=== PATIENT | female | born 2000 | race Caucasian/White ===

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

== ENCOUNTER → 2022-06-13 | Outpatient (CLI) | payer OTHER ==
--- NOTE | 2022-06-13 09:11 | Diagnostic Imaging Report ---
PROCEDURE: US Gallbladder. TECHNIQUE: Multiple real-time grayscale images were obtained over the right upper quadrant in various projections. INDICATION: Abdominal pain and elevated liver function test with nausea. FINDINGS: Liver measures 16 cm in length without evidence of focal lesion. There is no evidence of biliary ductal dilatation. Gallbladder contains multiple echogenic foci which are mobile. No gallbladder wall thickening or pericholecystic fluid is seen. Bowel gas obscures pancreas. No abdominal aortic, inferior vena caval or right renal abnormality is identified and there is no evidence of free fluid. IMPRESSION: Gallstones without evidence of acute inflammation or biliary tract obstruction. Dictated by: Dictated on workstation # [id number]
== END ==
LOC: RAD 07:58
PROVIDERS: ATTEND Nurse Practitioner Family
DX: K80.20 Calculus of gallbladder without cholecystitis without obstruction (principal); R94.5 Abnormal results of liver function studies
CPT/HCPCS: 76705